=== PATIENT | male | born 1980 | race Caucasian/White ===

== ENCOUNTER → 2021-08-13 | Outpatient (CLI) | payer OTHER ==
--- NOTE | 2021-08-13 15:57 | KCIC ---
EXAM: MRI OF RIGHT UPPER EXTREMITY WITHOUT CONTRAST 08/13/2021 10:50 AM CLINICAL INDICATION: Weakness of both hands. Right upper extremity numbness and weakness. Weak piercing artist. COMPARISON: None TECHNIQUE: Multiplanar multisequence MR images of the right forearm without contrast. FINDINGS: The exam is limited by pulsation artifact. No acute fracture or osseous lesion. Marrow sign al is normal. Muscles are normal in signal and bulk. There is no soft tissue mass. The median, ulnar, and radial nerves are grossly unremarkable. Subcutaneous soft tissue is normal. IMPRESSION: Unremarkable MRI of the right forearm. Electronically signed by: Carmel Vieira MD (08/13/2021 3:55 PM) [id number]
== END ==
LOC: KCIC MRI 10:38
PROVIDERS: ATTEND Plastic Surgery
DX: R29.898 Other symptoms and signs involving the musculoskeletal system (principal)
CPT/HCPCS: 73218